=== PATIENT | female | born 1955 | race Caucasian/White ===

== ENCOUNTER 2020-02-07 14:49 | Inpatient (IN) ==
[2020-02-07] MEDS ORDERED: DUONEB (A & A) INH ONE (15:21)
[2020-02-07] MEDS ORDERED: ALBUTEROL NEB INH ONE ×3 (15:21→17:09)
--- NOTE | 2020-02-07 15:21 | EKG Report ---
Test Performed on : 02/07/2020 3:05:41 PM Test Reason : CP SOB Blood Pressure : / mmHG Vent. Rate : 113 BPM Atrial Rate : 113 BPM P-R Int : 142 ms QRS Dur : 078 ms QT Int : 324 ms P-R-T Axes : 031 015 054 degrees QTc Int : 444 ms Sinus tachycardia. Otherwise normal ECG When compared with ECG of 23-AUG-2019 11:55, No significant change was found Unconfirmed Result
[2020-02-07] MEDS ORDERED: SOLU-MEDROL IV ONE (15:22)
--- NOTE | 2020-02-07 15:40 | Diag Imaging Result Doc PS360 ---
EXAM: CHEST-1 VIEW 02/07/2020 HISTORY: CP SOB TECHNIQUE: AP upright at 1513 COMMENT: The inspiration is not as optimal as on 08/28/2019. There continues to be blunting of the right costophrenic angle which is presumably due to fibrosis. There is generally increased interstitial markings which may be related to pulmonary edema. IMPRESSION: Pulmonary edema. Electronically signed by Juancho Schaefer 02/07/2020 3:37 PM
[2020-02-07 16:06] LABS: BASO# 0.05 X1000 (0.0-0.2); BASO% 0.5 % (0.0-0.8); EOS# 0.12 X1000 (0.0-0.7); EOS% 1.3 % (0.0-10.0); HEMATOCRIT 39.5 % (37.0-47.0); HEMOGLOBIN 12.4 g/dL (12.0-16.0); IMM GRAN# 0.07 X1000 (0.0-0.04); IMM GRAN% 0.7 % (0.0-0.5); LYMPH# 2.89 X1000 (1.2-3.4); LYMPH% 30.3 % (20.5-51.1); MCH 30.9 PG (27-31); MCHC 31.4 g/dL (33-37); MCV 98.5 FL (81-99); MONO# 1.43 X1000 (0.11-0.59); MPV 10.3 FL (7.4-10.4); NEUT# 4.98 X1000 (1.4-6.5); NEUT% 52.2 % (42.2-75.2); PLT 152 X1000 (130-400); RBC 4.01 XMIL (4.2-5.4); RDW 14.9 % (11.5-14.5); WBC 9.54 X1000 (4.8-10.8)
[2020-02-07 16:21] LABS: INR 1.01; PROTIME 13.5 Seconds (11.0-16.0)
[2020-02-07 16:22] LABS: PTT 31.7 Seconds (22.3-41.8)
[2020-02-07 16:25] LABS: AGAP 10; ALB/GLOB RATIO 1.6; ALKALINE PHOSPHATASE 150 U/L (32-104); BUN 15 mg/dL (8-22); CALCIUM 8.7 mg/dL (8.8-10.2); CHLORIDE 100 mmol/L (98-107); CK PROFILE 42 U/L (24-173); COSMO 279; CREATININE 0.5 mg/dL (0.5-0.9); ESTIMATED GFR > 60; GLUCOSE 151 mg/dL (70-104); GOT 32 U/L (10-30); GPT 37 U/L (10-36); POTASSIUM 4.5 mmol/L (3.5-5.1); SODIUM 138 mmol/L (136-145); TCO2 28 mmol/L (25-35); TOTAL PROTEIN 6.5 g/dL (6.3-8.3)
[2020-02-07] MEDS ORDERED: LASIX IV ONE ×2 (16:46→17:24)
[2020-02-07 17:22] LABS: URINE SOURCE CLEAN CATCH
[2020-02-07 17:25] LABS: BILIRUBIN URINE NEGATIVE (NEGATIVE); BLOOD URINE NEGATIVE (NEGATIVE); COLOR YELLOW; GLUCOSE URINE NEGATIVE (NEGATIVE); KETONE URINE NEGATIVE (NEGATIVE); LEUKOCYTES URINE NEGATIVE (NEGATIVE); NITRITE URINE NEGATIVE (NEGATIVE); PROTEIN URINE 30 mg/dL (NEGATIVE); SP GRAVITY URINE 1.019; TURBIDITY URINE CLEAR (CLEAR); UROBILINOGEN URINE NORMAL (NORMAL)
[2020-02-07 17:26] LABS: UR EPITHELIAL CELLS <10 /HPF (<10); URINE BACTERIA NEGATIVE /HPF; URINE RBC <10 /HPF (<10); URINE WBC <10 /HPF (<10)
[2020-02-07] MEDS ORDERED: XOPENEX NEB INH ONE (17:27)
[2020-02-07] MEDS ORDERED: NS NEB INH SCH (17:30)
[2020-02-07] MEDS ORDERED: ZOFRAN IV ONE (17:44)
[2020-02-07] MEDS ORDERED: DUONEB (A & A) INH PRN (18:08)
--- NOTE | 2020-02-07 18:09 | PROVIDER DOCUMENTATION ---
This chart was entered by rTistan Bryant Scribe, acting as scribe for Ernestine Miranda MD. HPI-General Adult - General Chief Complaint: Shortness of Breath Stated Complaint: SOB Time Seen by Provider: 02/07/20 15:16 Source: patient, family Allergies/Adverse Reactions: Patient Allergies Allergy/AdvReac Type Severity Reaction Status Date / Time pregabalin [From Lyrica] Allergy Severe hallucinati Verified 02/07/20 15:37 ons codeine Allergy HEADACHE Verified 02/07/20 15:37 latex Allergy RASH Verified 02/07/20 15:37 meperidine HCl * Allergy ITCHING Verified 02/07/20 15:37 [From Demerol] lorazepam [From Ativan] AdvReac Unknown Verified 02/07/20 15:37 Home Medications: Home Medication List Medication Instructions Recorded Confirmed Last Taken Type Budesonide/Formoterol Inhaler 2 puff INH RTBID 09/22/13 02/07/20 02/06/20 History [Symbicort 160/4.5 Microgm Inhaler] Omeprazole [Prilosec] 40 mg PO DAILY 09/22/13 02/07/20 02/06/20 History LISINOpril [Prinivil] 2.5 mg PO BID #60 tab 12/30/17 02/07/20 02/06/20 Rx Metoprolol [Lopressor] 25 mg PO BID #60 tab 12/30/17 02/07/20 02/06/20 Rx Albuterol 2.5MG/Ipratrop 0.5MG 3 ml INH RTQ4H neb 01/09/18 02/07/20 02/06/20 Rx [Duoneb (A & A)] Clonazepam [Klonopin] 1 mg PO BID 06/17/18 02/07/20 02/06/20 History Ergocalciferol (Vitamin D2) 50,000 unit PO DIRECTED 06/17/18 02/07/20 02/06/20 History [Vitamin D] Ranitidine [Zantac] 300 mg PO QHS 06/17/18 02/07/20 02/06/20 History Gabapentin [Neurontin] 600 mg PO TID 07/07/18 02/07/20 02/06/20 History Prednisone [Deltasone] 20 mg PO DAILY #7 tab 07/08/18 02/07/20 02/06/20 Rx Spironolactone [Aldactone] 25 mg PO DAILY #90 tab 07/10/18 02/07/20 02/06/20 Rx Amitriptyline [Elavil] 25 mg PO HS PRN #30 tab 06/18/19 02/07/20 02/06/20 Rx - History of Present Illness -Gen Adult Nature of Presenting Problems: 64 yof presents to the ed w/ c/o SOB, N. pt states onset SOB last night. pt c/o CP onset this am. pt states muli medical problems noticed in past hx. Location of Pain/Injury: reports: chest (CP) Pain Radiation: reports: no radiation Quality of Pain: reports: aching Severity: reports: mild Onset/Duration: reports: this morning (CP), last night (SOB) Timing: reports: still present Context/Activities at Onset: reports: none Modifying Factors: improves with: nothing Associated Symptoms: reports: chest pain, nausea, shortness of breath. denies: diarrhea, fever/chills, vomiting Recently seen or treated by another doctor?: Yes (saturday for poss blockage) Review of Systems - Adult - REVIEW OF SYSTEMS - ADULT Constitutional: reports: no symptoms reported Eyes: reports: no symptoms reported Ears, Nose, Mouth & Throat: reports: no symptoms reported Cardiovascular: reports: see HPI, chest pain. denies: heart murmur, palpitations Respiratory: reports: see HPI, shortness of breath, wheezing. denies: cough Gastrointestinal: reports: see HPI, nausea. denies: abdominal pain, vomiting Genitourinary: reports: no symptoms reported Musculoskeletal: reports: no symptoms reported Integumentary: reports: no symptoms reported Neurological: reports: no symptoms reported Psychiatric: reports: no symptoms reported Endocrine: reports: no symptoms reported Hematologic/Lymphatic: reports: no symptoms reported Allergic/Immunologic: reports: no symptoms reported All Other Systems: Reviewed and Negative Past History - Adult - PAST MEDICAL HISTORY-ADULT Review of Records: reports: Old Records Reviewed, Nursing Assessment Review, Medications Reviewed, Social history reviewed & non-contributory. Major Childhood Illnesses: reports: denies history Cardiovascular: reports: blood clots, HTN, hyperlipidemia, other (broken heart syndrome) Respiratory: reports: COPD, other (PE) Gastrointestinal: reports: denies history Obstetrical/Gynecological: reports: denies history Genitourinary: reports: denies history Musculoskeletal: reports: denies history Neurological: reports: CVA, TIA Psychiatric: reports: anxiety Endocrine/Immune: reports: Diabetes, Lymphoma Other Conditions: reports: denies history - PRIOR SURGERIES/PROCEDURES Surgical/Procedure History: reports: appendectomy, hysterectomy, tonsillectomy, hernia repair, orthopedic (extremity) (L elbow, L knee), breast (reduction), other (lung biopsy) - IMMUNIZATION STATUS Childhood Immunizations: See Nurse Assessment Flu Vaccine: See Nurse Assessment - FAMILY HISTORY Family History: reviewed, not pertinent - SOCIAL HISTORY Smoking: cigarettes, greater than 1 pack/day Substance Use: none/never Alcohol Use Frequency: never Physical Exam-General - PHYSICAL EXAM-ADULT Initial Vital Signs Reviewed: Yes - CONSTITUTIONAL General Appearance: appears well, alert, mild distress - EYES Eyes: PERRL/EOMI - NECK Neck: non-tender, full range of motion, supple - RESPIRATORY Respiratory: wheezing (barbara), other (decreased air entry) - CARDIOVASCULAR Cardiovascular: tachycardia (112) - CHEST (BREASTS) Chest/Breast: deferred - GASTROINTESTINAL (ABDOMEN) Abdominal Exam: normal bowel sounds, soft - GENITOURINARY Female Genitalia/Pelvic Exam: deferred Rectal Exam: deferred Hemoccult Exam: deferred - MUSCULOSKELETAL Back Exam: normal inspection, no CVA tenderness Extremity: other (barbara LE edema) - SKIN Integumentary: normal color - NEUROLOGIC Neurologic: elevator technician II-XII nml as tested - PSYCHIATRIC Psych/Mental Status: normal mood/affect, normal thought content, normal thought process, oriented x 3 Progress - PLAN OF CARE/RESULTS Progress/Plan/Lab Results: Vital Signs - 8 hr 02/07/20 14:57 02/07/20 15:39 02/07/20 16:22 Temperature 98.8 F Pulse Rate 112 H 115 H 118 H Respiratory Rate 22 40 H 31 H Blood Pressure 158/80 O2 Sat by Pulse Oximetry 90 L 94 L 02/07/20 17:29 Temperature Pulse Rate 119 H Respiratory Rate 35 H Blood Pressure O2 Sat by Pulse Oximetry Laboratory Results - last 24 hr 02/07/20 02/07/20 02/07/20 15:22 15:22 15:22 WBC RBC Hgb Hct MCV MCH MCHC RDW Std Deviation Plt Count MPV Immature Gran % (Auto) Neut % (Auto) Lymph % (Auto) Isabella % (Auto) Eos % (Auto) Baso % (Auto) Immature Gran # (Auto) Neut # (Auto) Lymph # (Auto) Isabella # (Auto) Eos # (Auto) Baso # (Auto) PT INR PTT (Actin FS) Sodium 138 Potassium 4.5 Chloride 100 Carbon Dioxide 28 Anion Gap 10 BUN 15 Creatinine 0.5 Estimated GFR/1.73 m2 > 60 BUN/Creatinine Ratio 30 Glucose 151 H Calculated Osmolality 279 Calcium 8.7 L Total Bilirubin 0.50 AST 32 H ALT 37 H Alkaline Phosphatase 150 H Creatine Kinase 42 Troponin T High Sens 21 H Qvm-A-Nztsrgeapej Pept Total Protein 6.5 Albumin 4.0 Globulin 2.5 Albumin/Globulin Ratio 1.6 Plasma Lactate 2.1 Urine Source Urine Color Urine Turbidity Urine pH Ur Specific [place] Urine Protein Ur Glucose (Stick) Ur Ketones (Stick) Urine Blood Urine Nitrite Urine Bilirubin Urobilinogen Dipstick Urine Leukocytes Urine WBC (Auto) Urine RBC (Auto) U Epithel Cells (Auto) Urine Bacteria (Auto) 02/07/20 02/07/20 02/07/20 15:22 15:22 15:22 WBC 9.54 RBC 4.01 L Hgb 12.4 Hct 39.5 MCV 98.5 MCH 30.9 MCHC 31.4 L RDW Std Deviation 14.9 H Plt Count 152 MPV 10.3 Immature Gran % (Auto) 0.7 H Neut % (Auto) 52.2 Lymph % (Auto) 30.3 Isabella % (Auto) 15.0 H Eos % (Auto) 1.3 Baso % (Auto) 0.5 Immature Gran # (Auto) 0.07 H Neut # (Auto) 4.98 Lymph # (Auto) 2.89 Isabella # (Auto) 1.43 H Eos # (Auto) 0.12 Baso # (Auto) 0.05 PT 13.5 INR 1.01 PTT (Actin FS) 31.7 Sodium Potassium Chloride Carbon Dioxide Anion Gap BUN Creatinine Estimated GFR/1.73 m2 BUN/Creatinine Ratio Glucose Calculated Osmolality Calcium Total Bilirubin AST ALT Alkaline Phosphatase Creatine Kinase Troponin T High Sens Kff-U-Netsbyfeevc Pept 3083 H Total Protein Albumin Globulin Albumin/Globulin Ratio Plasma Lactate Urine Source Urine Color Urine Turbidity Urine pH Ur Specific [place] Urine Protein Ur Glucose (Stick) Ur Ketones (Stick) Urine Blood Urine Nitrite Urine Bilirubin Urobilinogen Dipstick Urine Leukocytes Urine WBC (Auto) Urine RBC (Auto) U Epithel Cells (Auto) Urine Bacteria (Auto) 02/07/20 17:14 WBC RBC Hgb Hct MCV MCH MCHC RDW Std Deviation Plt Count MPV Immature Gran % (Auto) Neut % (Auto) Lymph % (Auto) Isabella % (Auto) Eos % (Auto) Baso % (Auto) Immature Gran # (Auto) Neut # (Auto) Lymph # (Auto) Isabella # (Auto) Eos # (Auto) Baso # (Auto) PT INR PTT (Actin FS) Sodium Potassium Chloride Carbon Dioxide Anion Gap BUN Creatinine Estimated GFR/1.73 m2 BUN/Creatinine Ratio Glucose Calculated Osmolality Calcium Total Bilirubin AST ALT Alkaline Phosphatase Creatine Kinase Troponin T High Sens [id number]-I-Cgtgtdakycj Pept Total Protein Albumin Globulin Albumin/Globulin Ratio Plasma Lactate Urine Source CLEAN CATCH Urine Color YELLOW Urine Turbidity CLEAR Urine pH 7.0 Ur Specific [place] 1.019 Urine Protein 30 A Ur Glucose (Stick) NEGATIVE Ur Ketones (Stick) NEGATIVE Urine Blood NEGATIVE Urine Nitrite NEGATIVE Urine Bilirubin NEGATIVE Urobilinogen Dipstick NORMAL Urine Leukocytes NEGATIVE Urine WBC (Auto) <10 Urine RBC (Auto) <10 U Epithel Cells (Auto) <10 Urine Bacteria (Auto) NEGATIVE Orders Category Date Time Status Cardiac Monitoring NOW Care 02/07/20 15:01 Active IV Insertion NOW Care 02/07/20 15:01 Active NEWS Score >or=5:Order NEWS Bundle S.O. NOW Care 02/07/20 15:00 Active Notify Provider of NEWS Score NOW Care 02/07/20 15:01 Active CHEST-1 VIEW [RAD] Stat Exams 02/07/20 15:01 Completed BLOOD CULTURE [BLDCUL] Stat Lab 02/07/20 15:31 Results CBC WITH DIFF [HEME] Stat Lab 02/07/20 15:22 Completed CK PROFILE [SP CHEM] Stat Lab 02/07/20 15:22 Completed COMPREHENSIVE METABOLIC PANEL [CHEM] Stat Lab 02/07/20 15:22 Completed LACTATE, PLASMA [CHEM] Lab 02/07/20 15:22 Completed LACTATE, PLASMA [CHEM] Lab 02/07/20 18:15 Uncollected LACTATE, PLASMA [CHEM] Lab 02/07/20 21:15 Uncollected PRO B-NATRIURETIC PEPTIDE Stat Lab 02/07/20 15:22 Completed PROTIME WITH INR [COAG] Stat Lab 02/07/20 15:22 Completed PTT [COAG] Stat Lab 02/07/20 15:22 Completed TROPONIN T HIGH SENSITIVITY Stat Lab 02/07/20 15:22 Completed URINALYSIS W/POSS RFLX CULT [URINALYSIS] Stat Lab 02/07/20 17:14 Completed Albuterol 2.5MG/Ipratrop 0.5MG [Duoneb (A & A)] Med 02/07/20 15:21 Discontinued 3 ml INH NOW ONE Albuterol [Albuterol Neb] Med 02/07/20 15:21 Discontinued 2.5 mg INH NOW ONE Albuterol [Albuterol Neb] Med 02/07/20 17:09 Discontinued 2.5 mg INH NOW ONE Albuterol [Albuterol Neb] Med 02/07/20 16:46 Discontinued 7.5 mg INH NOW ONE Furosemide [Lasix] Med 02/07/20 16:46 Discontinued 40 mg IV NOW ONE Furosemide [Lasix] Med 02/07/20 17:24 Discontinued 40 mg IV NOW ONE Levalbuterol Neb [Xopenex Neb] Med 02/07/20 17:27 Discontinued 0.63 mg INH NOW ONE Methylprednisolone Sod Succ [Solu-Medrol] Med 02/07/20 15:22 Discontinued 125 mg IV NOW ONE Sodium Chloride 0.9% Neb [Ns Neb] Med 02/07/20 17:30 Active 5 ml INH DIRECTED Aerosol Treatments Routine Oth 02/07/20 15:21 Completed Aerosol Treatments Routine Oth 02/07/20 16:46 Completed Aerosol Treatments Routine Oth 02/07/20 17:09 Completed Aerosol Treatments Routine Oth 02/07/20 17:28 Completed Aerosol Treatments Stat Oth 02/07/20 15:21 Completed Aerosol Treatments Stat Oth 02/07/20 16:46 Completed Aerosol Treatments Stat Oth 02/07/20 17:09 Completed Aerosol Treatments Stat Oth 02/07/20 17:28 Completed O2 Per Protocol Stat Oth 02/07/20 15:01 Completed EKG [EKG] Stat Ther 02/07/20 15:02 Draft EKG [EKG] Stat Ther 02/07/20 15:37 Ordered Result Diagrams: 02/07/20 15:22 02/07/20 15:22 - REASSESSMENT Reassessment #1 Time Reassessed: 17:30 Status: improving (still wheezing but improved from previous. reports nausea without vomiting) Reassessment #2 Time Reassessed: 17:53 Status: unchanged (doing breathing treatment but coughing. Xray reveal pulm edema with a high pro bnp. had been given lasix. Discussed admission) - EKG 1 Time of EKG reading by physician:: 15:05 EKG Read and Signed by:: Chad Lunsford EKG Interpretation (*Must complete 3 of following elements*): Abnormal Rate: 113 Rhythm: sinus tachycardia Wright: normal QRS: normal [place] Interval: normal ST Wave: normal - XRAY 1 XRAY Study: Chest Impression: See EMR Report ( EXAM: CHEST-1 VIEW 02/07/2020 HISTORY: CP SOB TECHNIQUE: AP upright at 1513 COMMENT: The inspiration is not as optimal as on 08/28/2019. There continues to be blunting of the right costophrenic angle which is presumably due to fibrosis. There is generally increased interstitial markings which may be related to pulmonary edema. IMPRESSION: Pulmonary edema. Electronically signed by Juancho Schaefer 02/07/2020 3:37 PM 02/07/20 1537 Interpreting Physician: Juancho Schaefer MD Dictated Date/Time: 02/07/20 1537 cc: Chad Lunsford MD; Basim Gu DO) Departure - Departure Date of Disposition Decision: 02/07/20 Time of Disposition Decision: 17:51 DIAGNOSIS: COPD exacerbation Pulmonary edema Qualifiers: Chronicity: acute Qualified Code(s): J81.0 - Acute pulmonary edema Disposition: ADMITTED INPATIENT 09 Certified Medical Emergency: Emergent Condition: Stable Referrals and Follow-Ups: Basim Gu DO [Primary Care Provider] - Discharge Education: Steps to Quit Smoking, [id number] - Critical Care Note This patient required my direct & personal management of CC.: No Attestation - Physician/ TAMIA Attestation Patient care was provided by Advanced Practice Provider:: No The physician spent face to face time with patient:: Yes Advanced Practice Provider documentation review:: Supervising physician onsite and consulted in the evaluation and care of this patient. The physician did have a face to face encounter with the patient. This chart was documented by the indicated scribe, (Tristan Bryant, [employer]) and accurately reflects the services I performed and decisions made by me, Ernestine Miranda MD, as attested by the provider's signature.
[2020-02-07] MEDS ORDERED: ZOFRAN IV PRN (18:13)
[2020-02-07] MEDS ORDERED: ELAVIL PO PRN (18:30)
--- NOTE | 2020-02-07 19:07 | HISTORY AND PHYSICAL ---
CHIEF COMPLAINT: Shortness of breath. HISTORY OF PRESENT ILLNESS: A 64-year-old female with a past medical history of chronic obstructive pulmonary disease on home O2, tobacco use and abuse. Currently, she is still smoking 1 pack a day and has been doing that for at least 40 years, diabetes, hypertension, takotsubo cardiomyopathy, peripheral arterial disease, and apparently low-grade B-cell lymphoma. Her last echocardiogram on 12/20/2017 showed an ejection fraction of 70% with no regional wall motion abnormality, but the left ventricle appeared to be hyperdynamic. She also had a cardiac cath done on 12/13/2017 and it looks like she had a newly identified left ventricular systolic function, I do believe at that time that was related to takotsubo cardiomyopathy. At any rate, she presented with severe shortness of breath that started today in the morning. Apparently, yesterday she was doing fine. In the emergency department, she was found to be tachycardic and tachypneic, hypoxemic but she is on home O2. Chest x-ray showed pulmonary edema. She received some breathing treatment and she also received some Lasix, but she is still having shortness of breath. Her proBNP is elevated. She does have some mild distention at the level of the jugular veins. I will admit this patient to treat her chronic obstructive pulmonary disease exacerbation and also there is the possibility of heart failure, so I will get an echocardiogram as well. She will be transferred to the [facility] and depending on the results, I will get Cardiology Department to evaluate this patient. She denies nausea, vomiting, diarrhea, constipation. No headache. No dizziness, but shortness of breath. No chest pain. REVIEW OF SYSTEM: All the 14 points of review of systems were reviewed. All of them negative except as per HPI. PAST MEDICAL HISTORY: As detailed above. FAMILY HISTORY: Apparently negative for heart disease or diabetes. She has family members with strokes, cervical and brain cancer in first-degree relatives. SOCIAL HISTORY: She smokes 1 pack a day and she has been doing that for at least 40 years. No drugs, no alcohol. PAST SURGICAL HISTORY: Appendectomy, hysterectomy, knee surgery, breast reduction, left carotid endarterectomy and left shoulder surgery. LABORATORY: WBC 9.5, hemoglobin 12.4, hematocrit 39.5, platelets 152,000. Sodium 138, potassium 4.5, chloride 100, bicarbonate 28, BUN 15, creatinine 0.5, glucose 151, calcium 8.7, AST 32, ALT 37, alkaline phosphatase 150. ProBNP 3083. Negative urine analysis. ASSESSMENT AND PLAN: 1. Chronic obstructive pulmonary disease exacerbation, I will put this patient on breathing treatment. I will continue with oxygen supplementation, pulmonary toilet, steroids. We will monitor this patient closely. 2. Possible congestive heart failure exacerbation. This patient does have a history of takotsubo cardiomyopathy, I will put this patient back on her home medications, and I will get a new echocardiogram to evaluate her left ventricular function. 3. Hypertension. Continue home medications. 4. Type 2 diabetes. I will go ahead and put this patient on sliding scale insulin and pattern her blood sugar. Likely her blood sugar will go up due to the steroids, I will also get a hemoglobin A1c. 5. History of takotsubo cardiomyopathy. I have placed this patient back on her home medications. I will get a new echocardiogram. 6. Peripheral arterial disease. Aware. 7. Tobacco use and abuse. This patient has been highly advised against tobacco use. I will continue with daily cessation education. We discussed this for at least 5 minutes. 8. History of low-grade B-cell lymphoma. Aware. PHYSICAL EXAMINATION: VITAL SIGNS: Temperature 98.8 degrees, pulse 119, respiratory rate 35, blood pressure 157/84, oxygen saturation 94% on room air. HEENT: Head normocephalic no trauma. PERRLA. NECK: Supple. She has some JVD and she has a scar on the left side of the neck from previous carotic endarterectomy. CHEST: Decreased breath sounds at the bases with crackles, prolonged expiratory phase. Some scattered wheezing. ABDOMEN: Soft, nontender, nondistended. No hepatosplenomegaly. EXTREMITIES: Trace lower extremity edema. No clubbing. No cyanosis. NEUROLOGICAL: The patient is awake, alert. She is oriented x3. No focal deficits. LABORATORY: WBC 9.5, hemoglobin 12.4, hematocrit 39.5, platelet 152,000. Sodium 138, potassium 4.5, chloride 100, bicarbonate 28, BUN 15, creatinine 0.5 glucose 151, calcium 8.7. AST 32, ALT 37, alkaline phosphatase 150. ProBNP 3083. RECOMMENDATIONS: Further recommendations pending hospital course. cc: Chris Collins MD
[2020-02-07] MEDS: DUONEB (A & A) INH SCH ×3 (19:54→23:40)
[2020-02-07] MEDS: SYMBICORT 160/4.5 MICROGM INHALER INH SCH (19:55)
[2020-02-07] MEDS: SOLU-MEDROL IV SCH (20:53)
[2020-02-07] MEDS: LASIX IV SCH (20:53)
[2020-02-07] MEDS: LOVENOX SUBQ SCH (20:54)
[2020-02-07] MEDS: PRINIVIL PO SCH (20:54)
[2020-02-07] MEDS: KLONOPIN PO SCH (20:54)
[2020-02-07] MEDS: NEURONTIN PO SCH (20:54)
[2020-02-07] MEDS: LOPRESSOR PO SCH (20:54)
[2020-02-07] MEDS: HUMULIN R SUBQ SCH (20:56)
[2020-02-07] MEDS: PRILOSEC PO SCH (21:54)
[2020-02-08] MEDS: DUONEB (A & A) INH SCH ×10 (00:45→22:50)
[2020-02-08] MEDS: SOLU-MEDROL IV SCH ×3 (01:15→20:39)
[2020-02-08 06:03] LABS: BASO# 0.06 X1000 (0.0-0.2); BASO% 0.9 % (0.0-0.8); EOS# 0.01 X1000 (0.0-0.7); EOS% 0.2 % (0.0-10.0); HEMATOCRIT 41.9 % (37.0-47.0); HEMOGLOBIN 13.4 g/dL (12.0-16.0); IMM GRAN# 0.03 X1000 (0.0-0.04); IMM GRAN% 0.5 % (0.0-0.5); LYMPH# 1.58 X1000 (1.2-3.4); LYMPH% 24.1 % (20.5-51.1); MCH 31.2 PG (27-31); MCV 97.7 FL (81-99); MONO# 0.42 X1000 (0.11-0.59); MONO% 6.4 % (1.7-9.3); MPV 10.5 FL (7.4-10.4); NEUT# 4.46 X1000 (1.4-6.5); NEUT% 67.9 % (42.2-75.2); PLT 167 X1000 (130-400); RBC 4.29 XMIL (4.2-5.4); RDW 14.9 % (11.5-14.5); WBC 6.56 X1000 (4.8-10.8)
[2020-02-08 06:04] LABS: HEMOGLOBIN A1C 5.8 % (4.8-6.0)
[2020-02-08] MEDS: LASIX IV SCH ×2 (06:10→19:04)
[2020-02-08] MEDS: HUMULIN R SUBQ SCH ×4 (06:36→20:35)
[2020-02-08 06:37] LABS: AGAP 16; ALB/GLOB RATIO 1.1; ALBUMIN 3.8 g/dL (3.5-5.0); ALKALINE PHOSPHATASE 143 U/L (32-104); BUN 20 mg/dL (8-22); CALCIUM 8.9 mg/dL (8.8-10.2); CHLORIDE 93 mmol/L (98-107); CK PROFILE 43 U/L (24-173); COSMO 283; CREATININE 0.7 mg/dL (0.5-0.9); ESTIMATED GFR > 60; GLUCOSE 278 mg/dL (70-104); GOT 24 U/L (10-30); GPT 32 U/L (10-36); POTASSIUM 4.1 mmol/L (3.5-5.1); SODIUM 135 mmol/L (136-145); TCO2 26 mmol/L (25-35); TOTAL BILIRUBIN 0.44 mg/dL (0.20-1.00); TOTAL PROTEIN 7.3 g/dL (6.3-8.3)
--- NOTE | 2020-02-08 07:43 | Diag Imaging Result Doc PS360 ---
EXAM: CHEST-PORTABLE INDICATION: dyspnea TECHNIQUE: One view COMPARISON: 02/07/2020 FINDINGS: There is stable blunting of the right costophrenic angle and there is now mild blunting of the left costophrenic angle suggesting a possible trace effusion on the left. Mild interstitial thickening bilaterally is essentially stable as well. No new consolidation is identified, otherwise. Stable cardiomediastinal silhouette. IMPRESSION: Development of minimal blunting of the left costophrenic angle suggesting a small effusion. Electronically signed by Jose Persaud 02/08/2020 7:40 AM
[2020-02-08] MEDS: SYMBICORT 160/4.5 MICROGM INHALER INH SCH ×2 (08:06→20:25)
[2020-02-08] MEDS ORDERED: LANTUS INSULIN SUBQ ONE (08:23)
[2020-02-08] MEDS ORDERED: PRILOSEC PO SCH (09:00)
[2020-02-08] MEDS: KLONOPIN PO SCH ×2 (10:27→20:33)
[2020-02-08] MEDS: LOPRESSOR PO SCH ×3 (10:27→20:45)
[2020-02-08] MEDS: NEURONTIN PO SCH ×3 (10:27→20:34)
[2020-02-08] MEDS: PRILOSEC PO SCH ×2 (10:28→20:34)
[2020-02-08] MEDS: PRINIVIL PO SCH ×3 (10:28→20:45)
--- NOTE | 2020-02-08 12:38 | PROGRESS NOTE ---
DATE: 02/08/2020 SUBJECTIVE: This patient is feeling better today compared with yesterday. She is still short of breath. She is still having bilateral crackles and some end-expiratory wheezing. I will decrease the dose of the steroids. I will continue with same management pending results of the carotid ultrasound and echocardiogram. OBJECTIVE: Vital Signs: Temperature 97.6 degrees, pulse 81, respiratory rate 19, blood pressure 110/50, oxygen saturation 93 on nasal cannula. HEENT: Head normocephalic. No trauma. PERRLA. Neck: Supple. No JVD. No masses. Central trachea. Chest: Decreased breath sounds globally with prolonged expiratory phase and end faint expiratory wheezing. Crackles at the bases. Abdomen: Soft, nontender, nondistended. No hepatosplenomegaly. Extremities: No edema, no clubbing, no cyanosis. Neurological: The patient is awake and alert. She is oriented x3. No focal deficits. LABORATORY DATA: WBC 6.5, hemoglobin 13.4, hematocrit 41.9, platelets 167,000. Sodium 135, potassium 4.1, chloride 93, bicarbonate 26, BUN 20, creatinine 0.7, glucose 278, calcium 8.9. AST 24, ALT 32, alkaline phosphatase 143, albumin 3.8. ASSESSMENT AND PLAN: 1. Chronic obstructive pulmonary disease exacerbation. I will continue with breathing treatment, oxygen supplementation, pulmonary toilet. I will decrease steroids. 2. Possible congestive heart failure exacerbation. This patient has a history of takotsubo cardiomyopathy. I put this patient back on her home medications. She is feeling better. Pending new echocardiogram. 3. Hypertension. Continue home medication. 4. Type 2 diabetes. Continue with sliding scale insulin and pattern of blood sugar. Her hemoglobin A1c is 5.8, so it seems to be controlled. At this moment, the blood sugar is elevated due to steroids. 5. Tobacco abuse. This patient has been highly advised against tobacco use. I will continue with daily cessation education. 6. History of low-grade B-cell lymphoma, aware. cc: Chris Collins MD
[2020-02-08 18:36] LABS: MAGNESIUM 1.9 mg/dL (1.5-2.7); PHOSPHORUS 3.2 mg/dL (2.7-4.5)
[2020-02-08 18:45] LABS: AGAP 17; BUN 34 mg/dL (8-22); CALCIUM 8.9 mg/dL (8.8-10.2); CHLORIDE 93 mmol/L (98-107); COSMO 292; CREATININE 0.9 mg/dL (0.5-0.9); ESTIMATED GFR > 60; GLUCOSE 288 mg/dL (70-104); POTASSIUM 3.8 mmol/L (3.5-5.1); SODIUM 137 mmol/L (136-145); TCO2 27 mmol/L (25-35)
[2020-02-08] MEDS: LOVENOX SUBQ SCH (18:50)
--- NOTE | 2020-02-08 22:54 | ECHO REPORT ---
ORDER DATE: 02/08/2020 MEASUREMENTS: Septal thickness 0.8, left ventricular internal diameter end-diastole 4.6, posterior wall thickness 0.8, left ventricular internal end-systole 3.2, aortic root 2.6, left atrium 3.3. SUMMARY: 1. Fair quality study. Intravenous echo contrast agent Optison was utilized to enhance endocardial definition. 2. Very mild sclerotic change of trileaflet aortic valve demonstrated with normal aortic valve opening evident. The peak gradient across the aortic valve is 15 mmHg. Mitral, tricuspid, and pulmonic valves are without evidence of structural abnormality. There is trace tricuspid regurgitation. The aortic root is normal in size. 3. Normal left ventricular dimensions demonstrated. The estimated left ventricular ejection fraction appears to be at least 65%. No regional wall motion abnormality can be appreciated. Doppler suggests grade 1 left ventricular diastolic dysfunction. The left atrium, right atrium and right ventricle are normal in size with normal right ventricular systolic function. 4. No pericardial effusion. 5. Inferior vena cava not well demonstrated. CONCLUSIONS: 1. Very mild aortic valve sclerosis without stenosis. 2. Estimated ejection fraction at least 65%. 3. Grade 1 left ventricular diastolic dysfunction is suggested. cc: MD Chris Campos MD
[2020-02-09] MEDS: DUONEB (A & A) INH SCH ×7 (03:50→23:56)
[2020-02-09 06:02] LABS: BASO# 0.02 X1000 (0.0-0.2); BASO% 0.1 % (0.0-0.8); EOS# 0.01 X1000 (0.0-0.7); EOS% 0.1 % (0.0-10.0); HEMOGLOBIN 12.9 g/dL (12.0-16.0); IMM GRAN# 0.07 X1000 (0.0-0.04); IMM GRAN% 0.4 % (0.0-0.5); LYMPH# 1.76 X1000 (1.2-3.4); LYMPH% 8.8 % (20.5-51.1); MCH 30.2 PG (27-31); MCHC 30.7 g/dL (33-37); MCV 98.4 FL (81-99); MONO# 2.07 X1000 (0.11-0.59); MONO% 10.4 % (1.7-9.3); MPV 10.6 FL (7.4-10.4); NEUT# 15.96 X1000 (1.4-6.5); NEUT% 80.2 % (42.2-75.2); PLT 227 X1000 (130-400); RBC 4.27 XMIL (4.2-5.4); RDW 15.3 % (11.5-14.5); WBC 19.89 X1000 (4.8-10.8)
[2020-02-09] MEDS: TYLENOL PO PRN (06:05)
[2020-02-09] MEDS: LASIX IV SCH (06:05)
[2020-02-09 06:11] LABS: AGAP 15; BUN 41 mg/dL (8-22); CALCIUM 8.8 mg/dL (8.8-10.2); CHLORIDE 95 mmol/L (98-107); COSMO 296; CREATININE 0.7 mg/dL (0.5-0.9); ESTIMATED GFR > 60; GLUCOSE 277 mg/dL (70-104); MAGNESIUM 2.1 mg/dL (1.5-2.7); PHOSPHORUS 3.6 mg/dL (2.7-4.5); POTASSIUM 4.1 mmol/L (3.5-5.1); SODIUM 138 mmol/L (136-145); TCO2 28 mmol/L (25-35)
[2020-02-09] MEDS: HUMULIN R SUBQ SCH ×4 (06:45→20:59)
[2020-02-09] MEDS: SYMBICORT 160/4.5 MICROGM INHALER INH SCH ×2 (07:53→20:10)
[2020-02-09] MEDS: PRILOSEC PO SCH ×2 (08:06→21:00)
[2020-02-09] MEDS: KLONOPIN PO SCH ×2 (08:08→21:00)
[2020-02-09] MEDS: NEURONTIN PO SCH ×3 (08:08→21:00)
[2020-02-09] MEDS: LOPRESSOR PO SCH (08:09)
[2020-02-09] MEDS: SOLU-MEDROL IV SCH ×2 (08:10→21:00)
[2020-02-09] MEDS ORDERED: LANTUS INSULIN SUBQ ONE (09:03)
[2020-02-09] MEDS: PRINIVIL PO SCH (11:01)
--- NOTE | 2020-02-09 14:23 | PROGRESS NOTE ---
DATE: 02/09/2020 SUBJECTIVE: The patient is feeling a little bit worse today compared with yesterday. She is still complaining of some shortness of breath. The blood pressure has been borderline low. I will decrease the dose of the Lasix. I will continue with the rest of the treatment. Echocardiogram showed a good ejection fraction with possible diastolic dysfunction and her carotid ultrasound is good. The right side has stenosis of 30% to 49% and the left side from 0% to 39%. PHYSICAL EXAMINATION: Vital Signs: Temperature 97.8 degrees, pulse 81, respiratory rate 18, blood pressure 97/37, oxygen saturation 95% on 2 L of nasal cannula. HEENT: Head normocephalic. No trauma. PERRLA. Neck: Supple. No JVD. No masses. Central trachea. Chest: Decreased breath sounds globally with prolonged expiratory phase and faint expiratory wheezing. Crackles at the bases. Abdomen: Soft, nontender, nondistended. No hepatosplenomegaly. Extremities: No edema no clubbing, no cyanosis. Neurological: The patient is awake. She is alert. She is oriented x3. No focal deficits. LABORATORY: WBC 19.8, hemoglobin 12.9, hematocrit 42.0, platelet count 227,000, sodium 138, potassium 4.1, chloride 95, bicarbonate 28, BUN 41, creatinine 0.7, glucose 227, calcium 8.8, magnesium 2.1. ASSESSMENT AND PLAN: 1. Chronic obstructive pulmonary disease exacerbation, continue breathing treatment, oxygen supplementation, and pulmonary toilet. I decreased the dose of the steroids yesterday. Hopefully, tomorrow we will do the same. 2. Likely diastolic heart failure exacerbation. She has a history of Takotsubo cardiomyopathy. Echocardiogram showed a good ejection fraction at 65% with no wall motion abnormality. We will monitor. 3. Hypertension. I will hold home medications because her blood pressure has been borderline low. I will recheck that tomorrow. 4. Tobacco abuse. This patient has been highly advised against tobacco use. I will continue with daily cessation education. 5. History of low-grade B-cell lymphoma. Aware. 6. Type 2 diabetes. Continue sliding scale insulin and pattern blood sugar. She received a dose of Lantus today because of high blood sugar, which is likely due to steroids. Her hemoglobin A1c was 5.8. cc: Chris Collins MD
[2020-02-09] MEDS: LOVENOX SUBQ SCH (17:36)
--- NOTE | 2020-02-09 19:26 | Carotid Study ---
DATE: 02/07/2020 STUDY PERFORMED: Bilateral duplex and color flow imaging of carotid arteries SCOPE USED: [employer] Vivid E9 ultrasound system with a 9 L-D transducer. REFERRING PHYSICIAN: Dr. Chris Brasher. STENOGRAPHER: Juany Pina RVT. INDICATIONS: Carotid bruit. FINDINGS: The velocities in cm/sec of both carotid systems were reviewed. There is forward flow in the right vertebral artery, and the right ICA/CCA ratio is 0.92, corresponding to a percent stenosis of 40% to 59%. The left vertebral artery also had forward flow of the left ICA/CCA ratio is 0.82, corresponding to a percent stenosis of 0% to 39%. INTERPRETATION: Mild to moderate atherosclerotic disease of the distal common and internal carotid arteries bilaterally without evidence of a hemodynamically significant lesion in either carotid system. The patient has a history of left carotid endarterectomy, and this area is widely patent status post left carotid endarterectomy. When compared to a previous study performed on 09/29/2015, there has been some progression of disease in the right carotid system, but it has been minimal. cc: MD Chris Valles MD
[2020-02-09] MEDS ORDERED: TESSALON PO PRN (23:28)
[2020-02-10] MEDS: DUONEB (A & A) INH SCH ×6 (03:50→19:42)
[2020-02-10 06:06] LABS: HEMATOCRIT 38.1 % (37.0-47.0); HEMOGLOBIN 11.8 g/dL (12.0-16.0); MPV 10.4 FL (7.4-10.4); RBC 3.81 XMIL (4.2-5.4); RDW 15.3 % (11.5-14.5); WBC 9.66 X1000 (4.8-10.8)
[2020-02-10 06:29] LABS: AGAP 12; BUN 31 mg/dL (8-22); CALCIUM 8.3 mg/dL (8.8-10.2); CHLORIDE 102 mmol/L (98-107); COSMO 295; CREATININE 0.6 mg/dL (0.5-0.9); ESTIMATED GFR > 60; GLUCOSE 191 mg/dL (70-104); POTASSIUM 4.1 mmol/L (3.5-5.1); SODIUM 142 mmol/L (136-145); TCO2 28 mmol/L (25-35)
[2020-02-10] MEDS: HUMULIN R SUBQ SCH ×4 (06:37→20:06)
[2020-02-10] MEDS: SYMBICORT 160/4.5 MICROGM INHALER INH SCH ×2 (07:41→19:42)
[2020-02-10] MEDS: KLONOPIN PO SCH ×2 (08:17→20:06)
[2020-02-10] MEDS: NEURONTIN PO SCH ×3 (08:17→20:06)
[2020-02-10] MEDS: PRILOSEC PO SCH ×2 (08:17→20:06)
[2020-02-10] MEDS: SOLU-MEDROL IV SCH ×2 (08:21→20:06)
--- NOTE | 2020-02-10 08:59 | Diag Imaging Result Doc PS360 ---
EXAM: CHEST-2 VIEWS 02/10/2020 HISTORY: hypoxia TECHNIQUE: PA and lateral chest COMMENT: There is tenting of the hemidiaphragm laterally on the right. There are bilateral platelike atelectatic opacities. Compared to 02/08/2020 there has been no significant change considering differences in technique. IMPRESSION: Bibasilar atelectasis. Electronically signed by Juancho Schaefer 02/10/2020 8:57 AM
[2020-02-10] MEDS ORDERED: LASIX IV SCH (09:00)
--- NOTE | 2020-02-10 15:38 | PROGRESS NOTE ---
DATE: 02/10/2020 SUBJECTIVE: This patient is feeling better today. She is still wheezing. She is still short of breath, but compared with yesterday she is much better. I will continue with the same treatment, and hopefully, this patient can be discharged in the next 24 hours. OBJECTIVE: Vital Signs: Temperature 98.6 degrees, pulse 97, respiratory rate 18, blood pressure 127/65. Oxygen saturation 100% on 2 L of nasal cannula. HEENT: Head normocephalic, no trauma. PERRLA. Neck: Supple. No JVD. No masses. Central trachea. Chest: Decreased breath sounds globally. Prolonged expiratory phase and faint end expiratory wheezing. Some crepitus at the bases. Abdomen: Soft, nontender, distended. No hepatosplenomegaly. Extremities: No edema, no clubbing, no cyanosis. Neurological: Patient is awake and alert. She is oriented x3. No focal deficits. LABORATORY: WBC 9.6, hemoglobin 11.8, hematocrit 38.1, platelets 205,000. Sodium 142, potassium 4.1, chloride 102, bicarbonate 28, BUN 31, creatinine 0.6, glucose 191, calcium 8.3. ASSESSMENT AND PLAN: 1. Chronic obstructive pulmonary disease exacerbation, continue breathing treatment, oxygen supplementation, pulmonary toilet. I will continue with the same dose of steroids at this moment, and hopefully, tomorrow I will change it to p.o., probably she will be discharged as well. 2. Likely diastolic heart failure exacerbation. She has a history of takotsubo cardiomyopathy, echocardiogram showed a good ejection fraction at 65% with no wall motion abnormality, we will monitor. 3. Hypertension. I will continue with same management. 4. Tobacco abuse. This patient has been highly advised against tobacco use. I will continue with daily cessation education. 5. Type 2 diabetes continue with same management. Her hemoglobin A1c was 5.8, so he has been controlled at home. 6. History of low grade B cell lymphoma, aware. cc: Chris Collins MD
[2020-02-10] MEDS: TYLENOL PO PRN ×2 (16:00→22:00)
[2020-02-10] MEDS: LOVENOX SUBQ SCH (20:06)
[2020-02-11] MEDS: DUONEB (A & A) INH SCH ×2 (03:41→08:37)
[2020-02-11] MEDS: HUMULIN R SUBQ SCH (06:13)
[2020-02-11 07:20] VITALS: BP 140/61
[2020-02-11 07:21] LABS: AGAP 14; BUN 26 mg/dL (8-22); CALCIUM 8.8 mg/dL (8.8-10.2); CHLORIDE 100 mmol/L (98-107); COSMO 285; CREATININE 0.6 mg/dL (0.5-0.9); ESTIMATED GFR > 60; GLUCOSE 156 mg/dL (70-104); SODIUM 139 mmol/L (136-145); TCO2 25 mmol/L (25-35)
[2020-02-11] MEDS: PRILOSEC PO SCH (08:10)
[2020-02-11] MEDS: KLONOPIN PO SCH (08:10)
[2020-02-11] MEDS: NEURONTIN PO SCH (08:10)
[2020-02-11] MEDS: SOLU-MEDROL IV SCH (08:10)
[2020-02-11] MEDS: SYMBICORT 160/4.5 MICROGM INHALER INH SCH (08:37)
[2020-02-11] MEDS ORDERED: LASIX PO SCH (09:00)
--- NOTE | 2020-02-11 19:00 | DISCHARGE SUMMARY ---
ADMISSION DATE: 02/07/2020 DISCHARGE DATE: 02/11/2020 PRIMARY CARE PHYSICIAN: Dr. Basim Gu. ADMISSION DIAGNOSIS: 1. Chronic obstructive pulmonary disease exacerbation. 2. Possible congestive heart failure exacerbation. 3. Hypertension. 4. Diabetes type 2. 5. History of Takotsubo cardiomyopathy. 6. Peripheral arterial disease. 7. Tobacco use and abuse. 8. History of low-grade B-cell lymphoma. DISCHARGE DIAGNOSIS: 1. Acute chronic obstructive pulmonary disease exacerbation improved. 2. Likely diastolic heart failure exacerbation with echocardiogram showing good ejection fraction at 65%. 3. Hypertension. 4. Tobacco abuse. 5. Diabetes type 2. 6. History of low grade B-cell lymphoma. SUMMARY OF FINDINGS: This is a 64-year-old female who presented with severe shortness of breath that started the morning of arrival. She was found to be tachycardic and tachypneic, hypoxemic, is on home O2. Her chest x-ray showed pulmonary edema. She was placed initially in the PVC. Cardiology was to evaluate. We did an echocardiogram on 02/08/2020 that showed left ventricular EF to be at least 65% with normal left ventricular dimensions. She was diuresed. We did a carotid Doppler study that showed mild to moderate atherosclerotic disease at the distal common and internal carotid arteries bilateral without evidence of a hemodynamically significant lesion in either carotid system. She has had a history of a left carotid endarterectomy and this area is widely patent status post a left carotid endarterectomy. We did a breathing treatment, oxygen supplementation and pulmonary toilet, placed her on steroids and weaned as she improved for her COPD. We highly advised her against any tobacco use. She has improved and it is now felt that she can safely be discharged home. DISCHARGE MEDICATIONS: Include Tylenol 650 mg p.o. q.6 hours p.r.n., DuoNeb q.4 hours, Elavil 25 mg p.o. at bedtime, benzonatate 100 mg p.o. t.i.d. p.r.n., Symbicort 160/4.5 two puff inhalation b.i.d., clonazepam 1 mg p.o. b.i.d., vitamin D2 50,000 units as directed, gabapentin 600 mg p.o. t.i.d., lisinopril 2.5 mg p.o. b.i.d., Medrol Dosepak to take as directed, metoprolol 25 mg p.o. b.i.d., omeprazole 40 mg p.o. b.i.d., ranitidine 150 mg p.o. b.i.d. and spironolactone 25 mg p.o. daily. FOLLOWUP: She will need to follow up with her primary care physician in the next 1 to 2 weeks call their office for an appointment. TIME SPENT: 35 minutes. Dictated by BERE Valiente for Chris Collins MD cc: DO Chris Peña MD
[2020-02-13] MEDS ORDERED: VITAMIN D PO SCH (09:00)
== END 2020-02-11 10:22 | disposition home health service (06) | DRG 190 ==
LOC: ED 14:49 → 2N 18:25
PROVIDERS: ATTEND Internal Medicine